=== PATIENT | male | born 1945 | race Caucasian/White ===

== ENCOUNTER → 2019-09-16 09:35 | Outpatient (CLI) | payer MEDICARE, SELFPAY ==
--- NOTE | ~2019-09-16 | XR_ITS ---
XR lumbar spine 2-3V DATE: 09/16/2019 10:15 INDICATION: Back pain TECHNIQUE: AP, lateral, coned lateral lumbosacral views COMPARISON: None FINDINGS: There is minimal dextroscoliosis of the lumbar spine. Diffuse idiopathic skeletal hyperostosis of the lower thoracic spine. There is multi-level degenerative disc disease of the lumbar spine, most pronounced at L1-2, moderate ly prominent at L3-4, L4-5. There is grade 1 anterolisthesis at L4-5. The sacroiliac joints are normal. There are surgical clips overlying the right upper quadrant, consistent with cholecystectomy. Multiple surgical clips overlying the pelvis bilaterally. IMPRESSION: Multi-level degenerative disc disease of the lumbar spine Diffuse idiopathic skeletal hyperostosis of the thoracic spine Reviewed, dictated and finalized at location B. RGRADUATE ADVISOR
--- NOTE | ~2019-09-16 | XR_ITS ---
XR thoracic spine 3V DATE: 09/16/2019 10:15 INDICATION: Back pain TECHNIQUE: AP, lateral, swimmer views COMPARISON: None FINDINGS: There is degenerative disc disease and uncovertebral joint spurring of the mid and lower ce rvical spine. There is diffuse idiopathic skeletal hyperostosis of the thoracic spine. No fracture or bone destruction of the thoracic spine. The thoracic pedicles are intact. No paraspina l soft tissue thickening. IMPRESSION: Diffuse idiopathic skeletal hyperostosis of the thoracic spine Degenerative disc disease and uncovertebral joint spurring of the mid and lower cervical spine Reviewed, dictated and finalized at location B. INUOUS IMPROVEMENT CONSULTANT
--- NOTE | ~2019-09-16 | XR_ITS ---
XR chest 2V DATE: 09/16/2019 10:15 INDICATION: Malignant bladder neoplasm TECHNIQUE: PA and lateral views COMPARISON: None FINDINGS: Normal heart size. No hilar or mediastinal enlargement. There is mild infiltrate or atelect asis or scarring at the left lung base. No pulmonary infiltrate or consolidation is noted otherwise. There is diffuse idiopathic skeletal hyperostosis of the thoracic spine. IMPRESSION: Mild infiltrate, atelectasis or scarring at the left lung base Reviewed, dictated and finalized at location B. HOCKEY COACH
== END ==
PROVIDERS: PCP Family Medicine; Visit Provider Physician Assistant
DX: C67.9 Malignant neoplasm of bladder, unspecified (principal); M51.36 Other intervertebral disc degeneration, lumbar region; M51.24 Other intervertebral disc displacement, thoracic region; R91.8 Other nonspecific abnormal finding of lung field
CPT/HCPCS: 71046; 72072; 72100

== ENCOUNTER 2019-09-21 09:57 | Outpatient (CLI) | payer MEDICARE, SELFPAY ==
--- NOTE | ~2019-09-21 | NM_ITS ---
EXAMINATION: NM bone scan whole body DATE: 09/21/2019 13:14 INDICATION: Malignant neoplasm of the bladder TECHNIQUE: 44.24 mCi Tc-99m HDP was administered intravenously. Delayed whole-body scintigrams were obtained. COMPARISON: Radiographs of the chest and thoracic and lumbar spine dated 09/16/2019 FINDINGS: Photopenic defects at both knees consistent with bilateral total knee arthroplasties. Normal degree o f thin linear uptake underlying the tibial trays, left greater than right. Relatively symmetric patte rn of likely degenerative joint centered uptake at the bilateral mid feet and ankles, acromioclavicul ar joints, hands and wrists and sternoclavicular joints. Activity projecting over the soft tissues at the anterolateral right pelvis and proximal thigh likely representing urine activity at a right lowe r quadrant ileal conduit. Single tiny focus of increased uptake in the midline of the anterior lower chest likely in the region of the xiphoid or costochondral cartilage with additional relatively symme tric mild uptake associated with the costochondral cartilage of the bilateral anterior first ribs. No other foci of abnormal bone uptake to suggest metastatic disease. IMPRESSION: 1. Typical symmetric pattern of the likely degenerative joint centered uptake as detailed above. 2. Single tiny focus of somewhat atypical uptake in the region of the xiphoid process which would be unlikely to represent metastatic disease in the absence of any additional suspicious bone lesions. Reviewed, dictated and finalized at location A. TRIMMER IMPRESSION: 1. Typical symmetric pattern of the likely degenerative joint centered uptake a s detailed above. 2. Single tiny focus of somewhat atypical uptake in the region of the xiphoid p rocess which would be unlikely to represent metastatic disease in the absence o f any additional suspicious bone lesions.
== END 2019-09-21 09:58 | disposition home or self-care (01) ==
PROVIDERS: PCP Family Medicine; Visit Provider Physician Assistant
DX: C67.9 Malignant neoplasm of bladder, unspecified (principal); R06.02 Shortness of breath
CPT/HCPCS: 78306; A9561

== ENCOUNTER 2020-06-10 00:29 | Outpatient (CLI) | payer MEDICARE, SELFPAY ==
[2020-06-10 21:19] LABS: SARS-CoV-2 RNA PCR Negative
== END 2020-06-10 00:30 | disposition home or self-care (01) ==
LOC: ANHCOVIDDT 00:31
PROVIDERS: PCP Family Medicine; Visit Provider Internal Medicine Gastroenterology
DX: Z01.812 Encounter for preprocedural laboratory examination (principal); Z20.828 Contact with and (suspected) exposure to other viral communicable diseases
CPT/HCPCS: 87635; C9803; U0003

== ENCOUNTER 2020-06-13 01:09 | Day surgery (SDC) | payer MEDICARE, SELFPAY ==
[2020-06-08 12:26] VITALS: BMI 44.6
--- NOTE | 2020-06-12 11:52 | WPDANESEPPF ---
Anes - Initial Pre Proc Eval Procedure: Operation Date: 06/13/20 09:00 Proposed Procedures p Screening Colonoscopy - Pelon Dockery MD Date/Time: 06/12/20 11:52 Surgeon: Pelon Dockery MD Pre Op Diagnosis: History of Colon Polyps,Fm Hx Of Colon CA Patient Data Age: 75 Gender: M Height: 1.72 m Weight: 132 kg Allergies Allergy/AdvReac Type Severity Reaction Status Date / Time hydrocodone AdvReac Unknown itching Verified 06/13/20 08:00 Home Medications Medication Instructions Recorded Confirmed Type aspirin 81 mg tablet,delayed 81 mg PO DAILY 07/30/19 06/08/20 History release biotin 10,000 mcg capsule 10,000 mcg PO DAILY 07/30/19 06/08/20 History cholecalciferol (vitamin D3) 50 2,000 unit PO DAILY 07/30/19 06/08/20 History mcg (2,000 unit) tablet cranberry 500 mg capsule 500 mg PO DAILY cap 07/30/19 06/08/20 History docusate sodium 100 mg capsule 100 mg PO HS 07/30/19 06/08/20 History ibuprofen 800 mg tablet 800 mg PO BID tablet 07/30/19 06/08/20 History magnesium 200 mg tablet 400 mg PO DAILY tablet 07/30/19 06/08/20 History multivitamin 1 tablet PO DAILY 07/30/19 06/08/20 History nitroglycerin 400 mcg/spray 1 spray SUBLINGUAL Q5M PRN 07/30/19 06/08/20 History translingual aerosol omega-3 fatty acids 1,000 mg 1,000 mg PO DAILY 07/30/19 06/08/20 History capsule levothyroxine 50 mcg tablet 50 mcg PO DAILY #180 tablet 10/13/19 06/08/20 Rx atorvastatin 20 mg tablet 20 mg PO DAILY #90 tablet 11/19/19 06/08/20 Rx furosemide 80 mg tablet 80 mg PO QPM #90 tablet 11/19/19 06/08/20 Rx losartan 25 mg tablet 25 mg PO DAILY #90 tablet 11/19/19 06/08/20 Rx isosorbide mononitrate 20 mg tablet 20 mg PO DAILY #90 tablet 02/19/20 06/08/20 Rx Curcumin 1 cap PO DAILY 06/08/20 06/08/20 History Metamucil 2 tsp PO BID 06/08/20 06/08/20 History alprazolam 1 mg PO HS 06/08/20 06/08/20 History duloxetine [Cymbalta] 60 mg PO HS 06/08/20 06/08/20 History loratadine [Claritin] 10 mg PO DAILY 06/08/20 06/08/20 History allopurinol 300 mg tablet 300 mg PO DAILY #90 tablet 06/12/20 Rx nifedipine 90 mg tablet,extended 90 mg PO DAILY #90 tablet 06/12/20 Rx release 24 hr Patient hx anesthesia problems: none Family hx anesthesia problems: none PMFSH Past Medical History Medical History (Updated 06/13/20 @ 08:24 by Pelon Dockery MD) Arthritis of both ankles Basal cell adenocarcinoma Basal cell carcinoma (BCC) dozen or more BMI 45.0-49.9, adult Essential (primary) hypertension Fracture, humerus Hernia Hypothyroidism Mixed hyperlipidemia Obstructive sleep apnea syndrome, mild Squamous cell carcinoma Vascular disease Surgical History Surgical History H/O hernia repair H/O prostatectomy Prostate cancer H/O total cystectomy H/O: vasectomy History of knee replacement left TKA, 2011, Dr. Reyes Right TKA, 2017, Dr. Bach History of urostomy Hx of cholecystectomy Family History Family History Other Family history of cardiovascular disease Family history of elevated blood lipids Family history of malignant neoplasm of breast Social History Social History Years smoked: 10 Smoking status: Former smoker Tobacco type: pipe Alcohol intake: current Substance use: never Substance use type: does not use Living arrangements: with family Gender identity (if verbalized by the patient): Male Spiritual care concerns: No Anes - Eval Final PreProcedure Day of Procedure 06/12/20 11:52 Patient weight: morbidly obese Heart: regular rate and rhythm Lungs: clear to auscultation and normal air movement Airway: Mallampati scale class II Neurological: alert and oriented Last oral intake: >/= 8 hours ASA classification: III Emergent: no Anesthetic plan: proceed Anesthesia type and monitoring: general GIVS and standard monitoring Infor
[2020-06-13 08:02] VITALS: BP 127/66; PULSE 68; RESP 20; TEMP 36.4; O2SAT 96; BMI 43.4
[2020-06-13] MEDS: LACTATED RINGERS 1,000 ML 150 ML IV CONT (08:19)
--- NOTE | 2020-06-13 08:21 | WPDGICN ---
Assessment and Plan Assessment and plan (1) History of colon polyps: Code(s): Z86.010 - Personal history of colonic polyps Status: Acute Assessment and Plan: Patient has had colon polyps in several occasions in the past. Most recently 5 years ago. Plan is for surveillance colonoscopy now and at 5 year intervals in the future. High-fiber diet is advised. (2) History of bladder cancer: Code(s): Z85.51 - Personal history of malignant neoplasm of bladder Status: Acute (3) Presence of urostomy: Code(s): Z93.6 - Other artificial openings of urinary tract status Status: Acute (4) Malignant neoplasm of prostate: Code(s): C61 - Malignant neoplasm of prostate Status: Acute GI Consult Note Consult date/time: 06/13/20 08:21 HPI: Misael Talamantes is a 75 year old male seen in evaluation at the request of Dr Chary Olvera. Patient has a history of colon polyps in the past. He presents today for surveillance colonoscopy. Last colonoscopy 5 years ago revealed an adenomatous colon polyp. Patient states his current weight appetite bowel movements are normal. He denies any blood in his stools. Past medical history is significant for prostate carcinoma as well as a bladder cancer. Patient has urostomy. He also has a left ventral hernia. Review of Systems Review of Systems: All systems reviewed & are unremarkable except as noted in HPI and below PMFSH Past Medical History Medical History (Updated 06/13/20 @ 08:24 by Pelon Dockery MD) Arthritis of both ankles Basal cell adenocarcinoma Basal cell carcinoma (BCC) dozen or more BMI 45.0-49.9, adult Essential (primary) hypertension Fracture, humerus Hernia Hypothyroidism Mixed hyperlipidemia Obstructive sleep apnea syndrome, mild Squamous cell carcinoma Vascular disease Surgical History Surgical History H/O hernia repair H/O prostatectomy Prostate cancer H/O total cystectomy H/O: vasectomy History of knee replacement left TKA, 2011, Dr. Reyes Right TKA, 2017, Dr. Bach History of urostomy Hx of cholecystectomy Family History Family History Other Family history of cardiovascular disease Family history of elevated blood lipids Family history of malignant neoplasm of breast Social History Social History Years smoked: 10 Smoking status: Former smoker Tobacco type: pipe Alcohol intake: current Substance use: never Substance use type: does not use Living arrangements: with family Gender identity (if verbalized by the patient): Male Spiritual care concerns: No Meds Home Medications and Allergies Home Medications Medication Instructions Recorded Confirmed Type aspirin 81 mg tablet,delayed 81 mg PO DAILY 07/30/19 06/08/20 History release biotin 10,000 mcg capsule 10,000 mcg PO DAILY 07/30/19 06/08/20 History cholecalciferol (vitamin D3) 50 2,000 unit PO DAILY 07/30/19 06/08/20 History mcg (2,000 unit) tablet cranberry 500 mg capsule 500 mg PO DAILY cap 07/30/19 06/08/20 History docusate sodium 100 mg capsule 100 mg PO HS 07/30/19 06/08/20 History ibuprofen 800 mg tablet 800 mg PO BID tablet 07/30/19 06/08/20 History magnesium 200 mg tablet 400 mg PO DAILY tablet 07/30/19 06/08/20 History multivitamin 1 tablet PO DAILY 07/30/19 06/08/20 History nitroglycerin 400 mcg/spray 1 spray SUBLINGUAL Q5M PRN 07/30/19 06/08/20 History translingual aerosol omega-3 fatty acids 1,000 mg 1,000 mg PO DAILY 07/30/19 06/08/20 History capsule levothyroxine 50 mcg tablet 50 mcg PO DAILY #180 tablet 10/13/19 06/08/20 Rx atorvastatin 20 mg tablet 20 mg PO DAILY #90 tablet 11/19/19 06/08/20 Rx furosemide 80 mg tablet 80 mg PO QPM #90 tablet 11/19/19 06/08/20 Rx losartan 25 mg tablet 25 mg PO DAILY #90 tablet 11/19/19 06/08/20 Rx isos
[2020-06-13 09:19] VITALS: BP 118/77; PULSE 67; RESP 20; O2SAT 94
[2020-06-13 09:29] VITALS: BP 116/77; PULSE 67; RESP 20; O2SAT 95
[2020-06-13 09:39] VITALS: BP 132/90; PULSE 65; RESP 20; O2SAT 95
== END 2020-06-13 09:54 | disposition home or self-care (01) ==
PROVIDERS: PCP Family Medicine; Visit Provider Internal Medicine Gastroenterology
PROC: 0DJD8ZZ Inspection of Lower Intestinal Tract, Via Natural or Artificial Opening Endoscopic (ICD-10-PCS; CPT 45378; principal; 2020-06-13 09:00)
DX: Z12.11 Encounter for screening for malignant neoplasm of colon (principal); K63.5 Polyp of colon; K57.30 Diverticulosis of large intestine without perforation or abscess without bleeding; K64.8 Other hemorrhoids; Z85.51 Personal history of malignant neoplasm of bladder; Z93.6 Other artificial openings of urinary tract status; Z85.46 Personal history of malignant neoplasm of prostate; I10 Essential (primary) hypertension; E78.2 Mixed hyperlipidemia; E66.01 Morbid (severe) obesity due to excess calories; Z68.41 Body mass index [BMI] 40.0-44.9, adult; Z87.891 Personal history of nicotine dependence; Z79.82 Long term (current) use of aspirin
CPT/HCPCS: 45385; 88305; J2704; J7120

== ENCOUNTER 2020-10-03 12:30 | Outpatient (RCR) | payer MEDICARE, SELFPAY ==
--- NOTE | 2020-08-22 09:41 | PTOPEVAL ---
PHYSICAL THERAPY EVALUATION AND PLAN OF CARE 08-22-2020 Thank you for referring Misael Talamantes to [facility].? He is scheduled to be seen for therapy? 1x /week for 6 weeks. Please review, sign, date and return this plan of care MARIBELL. I agree with and certify that the following plan of care is medically necessary. Referring Physician Date Attending Provider: Solo Olvera MD *PT Outpatient Evaluation Document 08/22/20 08:35 ZOE (Rec: 08/22/20 09:40 ZOE [id number]) Outpatient Past Medical History Past Medical History Source of Past Medical History Recalled from Previous Visit, Confirmed with Patient/Family Neurological History Hx Neurological Disorders No Significant History Cardiovascular History Hx Angina Yes: VASCULAR-VARIENT ANGINA Hx Hypercholesterolemia Yes: meds Hx Hypertension Yes: meds Hx Other Cardiac Disorders Yes: SUPERFICIAL THROMBOSIS YEARS AGO Respiratory History Hx Sleep Apnea Yes: CPAP Gastrointestinal History Hx Cholecystectomy Yes: 2012 Hx Diverticulosis Yes Hx Hemorrhoids Yes Hx Hernia Yes: UMBILICAL HERNIA REPAIR 2012/ ABD HERNIA AFTER CYSTECTOMY-BINDER Hx Polyps Yes Hx Other Gastrointestinal Disorders Yes: large L lower abdominal hernia-follow w/ dr;wear abd binder Genitourinary History Hx Bladder Surgery Yes: UROTHELIAL CARCINOMA, UROSTOMY LOWER RIGHT ABD. CYSTECTOMY-06/2015 Hx Prostatectomy Yes: RADICAL PROSTATECOMY 1997 - PROSTATE CANCER Hx Other Genitourinary Disorders Yes: LYMPHEDEMA BILATERAL LOWER EXTREMITIES-THIGH HIGH COMPRESSION STOCKINGS- Musculoskeletal History Hx Arthritis Yes Hx Joint Replacement Yes: L-KNEE 2011, RIGHT KNEE- 2016 Hx Other Musculoskeletal Disorders Yes: BRACE ON RIGHT ANKLE- traumatic arthritis Hematological History Hx Hematological Disorders No Significant History Endocrine History Hx Hypothyroidism Yes HEENT History Hx Cataracts Yes: BILATERAL 2019 Hx Deviated Septum Yes Integumentary History Hx Excision Skin Lesion Yes: BASAL CELL Hx Shingles Yes: HISTORY Reproductive History Hx Penile Implant Yes: RESIVOUR CUT DURING BLADDER SURGERY AND REMOVED Psychosocial History Hx Other Psychiatric Disorders Yes: TAKES CYMBALTA FOR
--- NOTE | 2020-10-03 13:12 | PTOPEVAL ---
PHYSICAL THERAPY DISCHARGE 10-03-20 Refer to the clinical summary below for his status at discharge. The goals were partially achieved. The goals for single leg standing and knee active ROM were improved, but not met. Thank you for referring Misael Talamantes to [facility].? Please review, sign, date and return this discharge MARIBELL. I agree with and certify that the following plan of care is medically necessary. Referring Physician Date Attending Provider: Solo Olvera MD Document 10/03/20 12:36 ZOE (Rec: 10/03/20 13:12 ZOE [id number]) Assessment Status Discharge Subjective Information Don reports: going to pool 4x/ Query Text:As Reported By Patient/ wk for exercises in water; Family doing land exercises at home too 20 reps; wearing B ankle immobilization braces, they help with pain and walking is better, but cannot maintain single leg standing with braces on; no falls or problems with mobility; will continue with all exercises after discharge from therapy. Pain Assessment Timing of Pain Assessment Timing of Pain Assessment Assessment Pain Scale Pain Scale Used Numeric (1 - 10) Self Report Pain Assessment Bilateral Generalized Reported Pain Level 7 Radicular Pain Location B ankles and feet; busy AM- store, shopping, another appt Pain Frequency Chronic Pain Score Pain Score 7: Self Report Interventions Used Interventions Used By Clinicians Exercise Lower Extremity Range of Motion General Lower Extremity Range of Motion Gross Lower Extremity Range of Motion knee flexion R 98'/ L 108'; Comments Lower Extremity Muscle Strength Testing General Lower Extremity Strength Gross Lower Extremity Strength side lying hip abduction R to 10' X 20 reps/ L to 15' x 20 reps; supine: bridge x 20 reps; all with good control and positioning; Balance Assessment Joseph Balance Assessment Sitting to Standing Independent w/out Hands Unsupported Stance Ability Safely- 2 minutes Sitting Unsupported, Feet on Floor Safely- 2 minutes Standing to Sitting Safely, Minimal Hand Use Transfer Ability Safely, Minimal Hand Use Unsupported Stance- Eyes Closed Safely, 10 seconds Unsupported Stance- Feet Together Independent, 1 minute Reaching Forward while Standing Confidently, 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
== END 2020-10-04 07:51 | disposition home or self-care (01) ==
LOC: ANHPT 12:30
PROVIDERS: PCP Family Medicine; Visit Provider Family Medicine
DX: R29.6 Repeated falls (principal)
CPT/HCPCS: 97110; 97162

== ENCOUNTER → 2020-10-23 07:53 | Outpatient (CLI) | payer MEDICARE, SELFPAY ==
--- NOTE | ~2020-10-23 | US_ITS ---
EXAMINATION: US abdomen complete EXAM DATE: 10/23/2020 08:20 INDICATION: R74.8 - Abnormal levels of other serum enzymes TECHNIQUE: Multiple grayscale and Doppler images of the complete abdomen were obtained (by a technolo gist who performed the scan) and subsequently reviewed. There is no prior study for comparison. FINDINGS: The abdominal aorta is normal in caliber. Visualized portion IVC is patent. The pancreatic head a nd body are normal in appearance. The pancreatic tail is not visualized. Mildly echogenic liver parenchyma, hepatic steatosis. There are no focal liver lesions identified. There is no evidence of intrahepatic biliary duct dilation. Portal venous flow was seen in the hepa topedal, normal direction and has normal Doppler waveform. Common bile duct measures 4 mm, which is normal. The gallbladder fossa is unremarkable. Right kidney: There is normal contour and echogenicity. It measures 10.4 x 5.2 x 4.7 centimeters. T here are several renal cysts measuring up to 1.9 cm. There is no hydronephrosis. Left kidney: There is normal contour and echogenicity. It measures 11.4 x 5.4 x 6.9 point centimeter s. Several cysts, largest measuring 2.3 cm. There is no hydronephrosis. There are splenic calcified granulomata, but spleen is otherwise morphologically normal. It measures 7.8 cm. IMPRESSION: 1. Hepatic steatosis. 2. Renal cysts. Reviewed, dictated and finalized at location A.
== END ==
PROVIDERS: PCP Family Medicine; Visit Provider Family Medicine
DX: R74.8 Abnormal levels of other serum enzymes (principal); N28.1 Cyst of kidney, acquired; K76.0 Fatty (change of) liver, not elsewhere classified
CPT/HCPCS: 76700

== ENCOUNTER 2021-07-25 10:30 | Outpatient (RCR) | payer MEDICARE, SELFPAY ==
--- NOTE | 2021-06-25 12:37 | PTOPEVAL ---
Thank you for referring Misael Talamantes to [facility].? The patient is scheduled to be seen for therapy? 2 x/week for 4 weeks. Please review, sign, date and return this plan of care MARIBELL. I agree with and certify that the following plan of care is medically necessary. Referring Physician Date Attending Provider: Solo Olvera MD Problem Diagnosis back pain Onset 50 yrs Additional Evaluation Detail He has history of falls. 2 falls in the past 6 months and 4 in the past year. Falls happen when he is walking. He walks with a cane and pato ankle braces. HE is a retired surgical nurse. He works as [employer] for [employer] and [employer]. He had to stand for 4 hrs due to the current set-up. He wears a soft abdominal binder due to large hernia. X-ray: minimal dextroscoliosis of the lumbar spine. Diffuse idiopathic skeletal hyperostosis of the lower thoracic spine. There is multi-level degenerative disc disease of the lumbar spine, most pronounced at L1-2, moderately prominent at L3-4, L4-5. There is grade 1 anterolisthesis at L4-5. Subjective Information Reports the back pain has Query Text:As Reported By Patient/ increased over the past few Family years. He reports increased pain with leg weakness in the norming. Acute stabbing pain in the left side of his back with radiating pain into his legs. He has trouble standing up tall. Denies problems with bathing dressing, but problems with donning custom lymphedema garments. He takes medication for the pain. He does pool therapy, he performs balance exercises in the pool. Pain Assessment Bilateral Lower Back Reported Pain Level 5 Pain Description Burning,Radiating,Sharp Pain Radiation
--- NOTE | 2021-07-25 11:26 | PTOPEVAL ---
Physical Therapy Progress Note/Discharge Summary Thank you for referring Misael Talamantes to [facility].?Misael has attended 9 therapy visits to address his chronic back pain. As a result of skilled therapy services he demonstrates improved trunk motion with decreased pain, improved LE strength and improved functional mobility. He has been provided a HEP and demonstrates compliance and indep. He has reached maximal potential with skilled therapy services at this time. Will DC skilled PT services. Please review, sign, date and return this discharge summary MARIBELL. I agree with and certify that the following plan of care is medically necessary. Referring Physician Date Attending Provider: Solo Olvera MD Diagnosis back pain Onset 50 yrs Additional Evaluation Detail He walks with a cane and pato ankle braces. HE is a retired surgical nurse. He wears a soft abdominal binder due to large hernia. X-ray: minimal dextroscoliosis of the lumbar spine. Diffuse idiopathic skeletal hyperostosis of the lower thoracic spine. There is multi-level degenerative disc disease of the lumbar spine, most pronounced at L1-2, moderately prominent at L3-4, L4-5. There is grade 1 anterolisthesis at L4-5. Subjective Information He reports his back pain has Query Text:As Reported By Patient/ improved with therapy. He has Family increased pain with prolonged standing. He is performing his HEP daily. He reports improved leg pain with leg weakness, but has not completely resolved. Improved c/0 stabbing pain in the left side of his back. Denies any problems with ADL's. 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 Pain Assessment Bilateral Lower Back Reported Pain Level 3 Pain Description Aching,Numbness,Radiating, Soreness,Tingling Pain Radiation Right Leg Pain Frequency Chronic Lowest Pain Intensity 3 Greatest Pain Intensity 6 Pain Aggravating Factors Weight Bearing/Standing
== END 2021-07-25 16:08 | disposition home or self-care (01) ==
LOC: ANHPT 10:30
PROVIDERS: PCP Family Medicine; Visit Provider Family Medicine
DX: M54.9 Dorsalgia, unspecified (principal)
CPT/HCPCS: 97014; 97110; 97140; 97162; G0283

== ENCOUNTER 2022-11-06 15:49 | Emergency (ER) | payer MEDICARE, SELFPAY ==
--- NOTE | ~2022-11-06 | US_ITS ---
EXAMINATION: US venous doppler [facility] DATE: 11/06/2022 20:12 INDICATION: injury L zhu, r/o traumatic hematoma/clot . TECHNIQUE: Grayscale images without and with compression and Doppler images of the left lower extremi ty veins were obtained. COMPARISON: None FINDINGS: The left common femoral vein, profunda (deep) femoral vein, femoral vein, popliteal vein, peroneal v ein, posterior tibial veins, gastrocnemius vein, and greater saphenous vein are patent. 2.7 x 4.5 x 1 5.2 cm mostly hypoechoic, heterogeneously echogenic, irregular, avascular collection in the subcutane ous tissues in the area of clinical concern. IMPRESSION: 1. Patent left lower extremity veins. No evidence of deep venous thrombosis. 2. Likely hematoma in the area of clinical concern. Reviewed, dictated and finalized at location K.
--- NOTE | ~2022-11-06 | XR_ITS ---
EXAM: XR tibia fibula LT 2V DATE: 11/06/2022 16:46 HISTORY: fall, leg pain . COMPARISON: None available. FINDINGS: Normal mineralization. Uncomplicated appearing left knee arthroplasty. No fracture or disl ocation. No lytic or blastic lesion. Degenerative changes in the knee, ankle, and midfoot. Achilles a nd plantar enthesopathy Small left knee joint effusion. No erosion or periosteal change. Diffuse subc utaneous edema. IMPRESSION: No acute osseous finding in the left tibia or fibula. Reviewed, dictated and finalized at location K.
[2022-11-06 15:57] VITALS: BP 135/76; PULSE 96; RESP 18; TEMP 36.4; O2SAT 97
--- NOTE | 2022-11-06 19:30 | ED.LOWEXIN ---
HPI - Extremity Injury (Lower) General Chief Complaint: Extremity Injury, Lower Stated Complaint: leg pain Time Seen by Provider: 11/06/22 17:12 Source: patient Mode of arrival: ambulatory Limitations: no limitations History of Present Illness HPI Narrative: Patient is a 77-year-old male who presents the ED with report of left lower leg pain. Patient reports a history of chronic lymphedema in his lower extremities. He typically uses a cane or walker for assistance with ambulation and has extensive compression therapy he undergoes daily. He reports today he was trying to unload a trailer hitch for his electric scooter when the rajan he was trying to place the hitch on rolled away. Patient's left lower leg became caught in between the pallet and trailer hitch. He complains of pain to his left anterior lower leg. Concerned for a possible fracture. He has been able to ambulate since the accident, but has pain with bearing any weight on that leg. He has noticed increased swelling to the leg as well. He took Tylenol and ibuprofen just prior to arrival which has helped with the pain. Denies any numbness, tingling. Denies any other injury. Related Data Home Medications Medication Instructions Recorded Confirmed aspirin 81 mg tablet,delayed 81 mg PO DAILY 07/30/19 12/10/21 release biotin 10,000 mcg capsule 10,000 mcg PO DAILY 07/30/19 12/10/21 cholecalciferol (vitamin D3) 50 2,000 unit PO DAILY 07/30/19 12/10/21 mcg (2,000 unit) tablet cranberry 500 mg capsule 500 mg PO DAILY 07/30/19 12/10/21 docusate sodium 100 mg capsule 100 mg PO HS 07/30/19 12/10/21 ibuprofen 800 mg tablet 800 mg PO BID 07/30/19 12/10/21 magnesium 200 mg tablet 400 mg PO DAILY 07/30/19 12/10/21 multivitamin 1 tablet PO DAILY 07/30/19 12/10/21 nitroglycerin 400 mcg/spray 1 spray sublingual Q5M PRN Angina 07/30/19 12/10/21 translingual aerosol omega-3 fatty acids 1,000 mg 1,000 mg PO DAILY 07/30/19 12/10/21 capsule (Fish Oil Concentrate) Curcumin 1 cap PO DAILY 06/08/20 12/10/21 Metamucil 2 tsp PO BID 06/08/20 12/10/21 loratadine 10 mg tablet (Claritin) 10 mg PO DAILY 06/08/20 12/10/21 ascorbate calcium (vitamin C) 500 500 mg PO DAILY 08/11/20 12/10/21 mg tablet zinc 50 mg tablet 50 mg PO DAILY 08/11/20 12/10/21 Allergies Allergy/AdvReac Type Severity Reaction Status Date / Time hydrocodone AdvReac Unknown itching Verified 12/10/21 08:36 Review of Systems Review of Systems: CONSTITUTIONAL: Denies fever, chills, or sweats. SKIN: See HPI. MUSCULOSKELETAL: See HPI. NEUROLOGIC: See HPI. All systems reviewed & are unremarkable except as noted in HPI and below PMFSH Past Medical History Medical History Arthritis of both ankles Back pain Basal cell adenocarcinoma Basal cell carcinoma (BCC) dozen or more BMI 45.0-49.9, adult Essential (primary) hypertension Fracture, humerus Hernia History of bladder cancer History of colon polyps History of prostate cancer Hypothyroidism Malignant neoplasm of bladder, unspecified Malignant neoplasm of prostate Mixed hyperlipidemia Obstructive sleep apnea syndrome, mild Recurrent falls Shortness of breath Squamous cell carcinoma Vascular disease Surgical History Surgical History H/O hernia repair H/O prostatectomy Prostate cancer H/O total cystectomy H/O: vasectomy History of knee replacement left TKA, 2012, Dr. Reyes Right TKA, 2017, Dr. Bach History of urostomy Hx of cholecystectomy Family History Family History Other Family history of cardiovascular disease Family history of elevated blood lipids Family history of malignant neoplasm of breast Social History Social History Years smoked: 10 Tobacco type: pipe Alcohol intake: current Substa
[2022-11-06 19:43] VITALS: BP 124/60; PULSE 70; RESP 18; TEMP 36.6; O2SAT 96
== END 2022-11-06 21:10 | disposition home or self-care (01) ==
PROVIDERS: Emergency Provider Physician Assistant; PCP Hospitalist
DX: S80.12XA Contusion of left lower leg, initial encounter (principal); I89.0 Lymphedema, not elsewhere classified; I10 Essential (primary) hypertension; E78.2 Mixed hyperlipidemia; G47.33 Obstructive sleep apnea (adult) (pediatric); I99.9 Unspecified disorder of circulatory system; M19.072 Primary osteoarthritis, left ankle and foot; M19.071 Primary osteoarthritis, right ankle and foot; Z85.46 Personal history of malignant neoplasm of prostate; Z85.51 Personal history of malignant neoplasm of bladder; Z85.828 Personal history of other malignant neoplasm of skin; Z86.010 Personal history of colon polyps; Z96.653 Presence of artificial knee joint, bilateral; Z90.79 Acquired absence of other genital organ(s); Z90.49 Acquired absence of other specified parts of digestive tract; W23.0XXA Caught, crushed, jammed, or pinched between moving objects, initial encounter
CPT/HCPCS: 73590; 93971; 99284

== ENCOUNTER 2022-11-29 13:42 | Outpatient (CLI) | payer MEDICARE, SELFPAY ==
--- NOTE | ~2022-11-29 | US_ITS ---
EXAMINATION: US venous doppler [facility] DATE: 11/29/2022 14:31 INDICATION: Left lower limb edema. TECHNIQUE: Grayscale ultrasound images without and with compression and Doppler ultrasound images of the left lower extremity veins were obtained. COMPARISON: ultrasound 11/06/22 FINDINGS: The visualized portions of left common femoral vein, profunda (deep) femoral vein, femoral vein, popl iteal vein, peroneal veins, posterior tibial veins, and greater saphenous vein outflow are patent. In the left lower leg, there is a 19.7 x 3.5 x 9.9 cm cystic mass. IMPRESSION: 1. Large cystic mass again seen in the lower leg, consistent with hematoma. Superimposed infection c annot be excluded by imaging. Reviewed, dictated and finalized at location A. IMPRESSION: 1. Large cystic mass again seen in the lower leg, consistent with hematoma. Rivas perimposed infection cannot be excluded by imaging.
== END 2022-11-29 13:43 | disposition home or self-care (01) ==
PROVIDERS: PCP Hospitalist; Visit Provider Hospitalist
DX: R60.0 Localized edema (principal); L03.116 Cellulitis of left lower limb
CPT/HCPCS: 93971

== ENCOUNTER 2023-03-05 12:40 | Outpatient (CLI) | payer MEDICARE, SELFPAY ==
--- NOTE | ~2023-03-05 | US_ITS ---
EXAMINATION: US venous doppler [facility] DATE: 03/05/2023 13:42 INDICATION: Left lower limb edema. TECHNIQUE: Grayscale ultrasound images without and with compression and Doppler ultrasound images of the left lower extremity veins were obtained. COMPARISON: Ultrasound 11/29/2022 FINDINGS: The visualized portions of left common femoral vein, profunda (deep) femoral vein, femoral vein, popl iteal vein, peroneal veins, posterior tibial veins, and greater saphenous vein outflow are patent. IMPRESSION: 1. No deep venous thrombosis. Reviewed, dictated and finalized at location A.
== END 2023-03-05 12:41 | disposition home or self-care (01) ==
PROVIDERS: PCP Hospitalist; Visit Provider Hospitalist
DX: R60.0 Localized edema (principal); L03.116 Cellulitis of left lower limb
CPT/HCPCS: 93971